=== PATIENT | female | born 1980 | race Caucasian/White ===

== ENCOUNTER 2024-05-15 09:45 | Emergency (ER) | payer OTHER ==
[2024-05-15 10:04] VITALS: BP 125/74; PULSE 65; RESP 16; TEMP 99; BMI 24.8
[2024-05-15] MEDS ORDERED: KETOROLAC TROMETHAMINE 30 MG/1 ML VIAL ONE (10:27)
[2024-05-15] MEDS: KETOROLAC TROMETHAMINE 30 MG/1 ML VIAL IM ONE (10:30)
[2024-05-15] MEDS ORDERED: ACETAMINOPHEN 325 MG TABLET (FP) ONE (11:19)
[2024-05-15] MEDS ORDERED: LIDOCAINE 4% PATCH TP ONE (12:21)
[2024-05-15] MEDS: LIDOCAINE 4% PATCH TP ONE (12:31)
[2024-05-15] MEDS: ACETAMINOPHEN 325 MG TABLET (FP) PO ONE (12:32)
[2024-05-15] MEDS ORDERED: LIDOCAINE PATCH REMOVAL MC SCH (22:00)
== END 2024-05-15 12:41 | disposition home or self-care (01) ==
LOC: JER 09:45
PROC: 3E0233Z Introduction of Anti-inflammatory into Muscle, Percutaneous Approach (ICD-10-PCS; principal; 2024-05-15)
DX: M54.2 Cervicalgia (principal); R42 Dizziness and giddiness; M62.838 Other muscle spasm; V47.5XXA Car driver injured in collision with fixed or stationary object in traffic accident, initial encounter; Y92.410 Unspecified street and highway as the place of occurrence of the external cause
CPT/HCPCS: 72125-TC; 72128-TC; 72131-TC; 84703; 99284-25